=== PATIENT | female | born 1970 | race Two or more races ===

== ENCOUNTER 2018-04-13 09:22 | Outpatient (CLI) | payer OTHER ==
[~2018-04-13 09:22] MED LIST: ARNICA120 ML TP; CLONAZEPAM0.5 MG; ENBREL50 MG/M1; PNEU16DI2; ST. JOHN'S WOR150 MG PO; SYNTHROID75 MCG PO; TURMERIC500 MG PO
== END 2018-04-13 09:32 | disposition home or self-care (01) ==
LOC: MAMO-SONO 09:22
DX: Z12.31 Encounter for screening mammogram for malignant neoplasm of breast (principal); Z87.898 Personal history of other specified conditions; N60.11 Diffuse cystic mastopathy of right breast

== ENCOUNTER → 2019-06-09 11:54 | Outpatient (CLI) | payer OTHER | END | disposition home or self-care (01) | LOC: LAB 11:54 | DX: D51.1 Vitamin B12 deficiency anemia due to selective vitamin B12 malabsorption with proteinuria (principal); D69.59 Other secondary thrombocytopenia; D51.0 Vitamin B12 deficiency anemia due to intrinsic factor deficiency; D51.3 Other dietary vitamin B12 deficiency anemia; E06.3 Autoimmune thyroiditis; D50.8 Other iron deficiency anemias; I10 Essential (primary) hypertension ==

== ENCOUNTER 2020-05-26 08:32 | Outpatient (CLI) | payer OTHER | END 2020-05-26 08:54 | disposition home or self-care (01) | LOC: MAMO-SONO 08:32 | PROVIDERS: ATTEND Obstetrics & Gynecology | DX: Z12.31 Encounter for screening mammogram for malignant neoplasm of breast (principal); N60.01 Solitary cyst of right breast; N60.11 Diffuse cystic mastopathy of right breast; R10.2 Pelvic and perineal pain ==

== ENCOUNTER 2020-09-25 09:45 | Inpatient (IN) | payer OTHER ==
[~2020-09-25] VITALS: Ht 172.7 cm; Wt 66.7 kg
[2020-09-25] MEDS ORDERED: VITAMIN B12 PO (13:28)
[2020-09-25] MEDS ORDERED: NEURIN SL (13:28)
[2020-09-25] MEDS ORDERED: NASAL MIST126 ML (13:29)
[2020-09-25] MEDS ORDERED: ZINC PO (13:29)
[2020-09-25] MEDS ORDERED: GORDON'S VITE A75 GM PO (13:29)
[2020-09-25] MEDS ORDERED: RAYOS5 MG PO (17:38)
[2020-09-28] MEDS ORDERED: ABANEU-SL TABL1 EACH (09:23)
[2020-09-28] MEDS ORDERED: VITAMIN B-121000 MC4 (09:24)
[2020-09-28] MEDS ORDERED: ZINC50 M1 (09:24)
[2020-10-01] MEDS ORDERED: Tylenol #3 PO (11:02)
[2020-10-01] MEDS ORDERED: EC-NAPROXEN500 MG PO (11:02)
== END 2020-10-01 11:40 | disposition home or self-care (01) | DRG 743 ==
LOC: O/R 09-28 06:27 → SURH 09-28 08:45 → OB/GYN 09-28 14:43
PROVIDERS: ADMIT Obstetrics & Gynecology; ATTEND Obstetrics & Gynecology
PROC: 0UB70ZZ Excision of Bilateral Fallopian Tubes, Open Approach (ICD-10-PCS; 2020-09-28)
PROC: 0TJB8ZZ Inspection of Bladder, Via Natural or Artificial Opening Endoscopic (ICD-10-PCS; 2020-09-28)
PROC: 0UT90ZZ Resection of Uterus, Open Approach (ICD-10-PCS; principal; 2020-09-28 08:45)
DX: N72 Inflammatory disease of cervix uteri (principal); D25.1 Intramural leiomyoma of uterus; N83.8 Other noninflammatory disorders of ovary, fallopian tube and broad ligament; N81.11 Cystocele, midline; N94.5 Secondary dysmenorrhea; D63.0 Anemia in neoplastic disease; D69.59 Other secondary thrombocytopenia; E06.3 Autoimmune thyroiditis

== ENCOUNTER 2022-08-09 10:44 | Emergency (ER) | payer OTHER ==
[~2022-08-09] VITALS: Ht 160 cm; Wt 62.6 kg
[~2022-08-09 10:44] MED LIST changes: +ABANEU-SL TABL1 EACH; +EC-NAPROXEN500 MG PO; +GORDON'S VITE A75 GM PO; +NASAL MIST126 ML; +NEURIN SL; +RAYOS5 MG PO; +Tylenol #3 PO; +VITAMIN B-121000 MC4; +VITAMIN B12 PO; +ZINC PO; +ZINC50 M1
[2022-08-09] MEDS ORDERED: TRAMADOL HCL50 MG PO (16:43)
== END 2022-08-09 16:51 | disposition home or self-care (01) ==
LOC: ER 10:44
DX: M54.50 Low back pain, unspecified (principal)

== ENCOUNTER 2022-09-10 13:40 | Outpatient (CLI) | payer OTHER ==
[~2022-09-10 13:40] MED LIST changes: +TRAMADOL HCL50 MG PO
== END 2022-09-10 13:41 | disposition home or self-care (01) ==
LOC: NUCLEAR 13:40
PROVIDERS: ATTEND Obstetrics & Gynecology
DX: M85.89 Other specified disorders of bone density and structure, multiple sites (principal)

== ENCOUNTER 2024-12-29 10:09 | Outpatient (CLI) | payer OTHER | END 2024-12-29 10:16 | disposition home or self-care (01) | LOC: RAD 10:09 | DX: M51.06 Intervertebral disc disorders with myelopathy, lumbar region (principal); Z01.818 Encounter for other preprocedural examination ==